=== PATIENT | male | born 1955 ===

== ENCOUNTER 2021-09-07 08:00 | Inpatient (IN) | payer OTHER ==
[~2021-09-07] VITALS: Ht 175.3 cm; Wt 99.8 kg
[2021-09-07] MEDS ORDERED: MOTRIN IB200 M1 PO (09:26)
[2021-09-07] MEDS ORDERED: METFORMIN HCL500 M3 PO (09:27)
[2021-09-13] MEDS ORDERED: PERCOCET 5-3251 EACH PO (12:31)
[2021-09-13] MEDS ORDERED: CEFADROXIL500 MG PO (12:31)
[2021-09-13] MEDS ORDERED: ELIQUIS2.5 MG PO (12:31)
== END 2021-09-13 16:52 | disposition home or self-care (01) | DRG 470 ==
LOC: O/R 09-11 06:31 → SURG 09-11 06:31 → SURH 09-11 08:00 → SURG 09-11 13:38
PROVIDERS: ADMIT Orthopaedic Surgery; ATTEND Orthopaedic Surgery
PROC: 0SRD0J9 Replacement of Left Knee Joint with Synthetic Substitute, Cemented, Open Approach (ICD-10-PCS; principal; 2021-09-11 09:45)
DX: M17.12 Unilateral primary osteoarthritis, left knee (principal); M22.12 Recurrent subluxation of patella, left knee; E66.8 Other obesity; Z20.822 Contact with and (suspected) exposure to COVID-19

== ENCOUNTER 2022-08-30 07:15 | Inpatient (IN) | payer OTHER ==
[~2022-08-30] VITALS: Ht 177.8 cm; Wt 99.8 kg
[~2022-08-30 07:15] MED LIST: CEFADROXIL500 MG PO; ELIQUIS2.5 MG PO; METFORMIN HCL500 M3 PO; MOTRIN IB200 M1 PO; PERCOCET 5-3251 EACH PO
[2022-09-05] MEDS ORDERED: PERCOCET 5-3251 EACH PO (17:18)
[2022-09-05] MEDS ORDERED: DUI500 PO (17:18)
[2022-09-05] MEDS ORDERED: ELIQUIS2.5 MG PO (17:18)
[2022-09-06] MEDS ORDERED: PERCOCET 5-3251 EACH PO (07:12)
[2022-09-06] MEDS ORDERED: ELIQUIS2.5 MG PO (07:12)
[2022-09-06] MEDS ORDERED: DUI500 PO (07:12)
== END 2022-09-06 11:06 | DRG 470 ==
LOC: O/R 09-03 06:18 → SURG 09-03 07:15
PROVIDERS: ADMIT Orthopaedic Surgery; ATTEND Orthopaedic Surgery
PROC: 0SRC0J9 Replacement of Right Knee Joint with Synthetic Substitute, Cemented, Open Approach (ICD-10-PCS; principal; 2022-09-03 10:00)
DX: M17.11 Unilateral primary osteoarthritis, right knee (principal); D62 Acute posthemorrhagic anemia; M22.11 Recurrent subluxation of patella, right knee; I10 Essential (primary) hypertension; Z96.651 Presence of right artificial knee joint